=== PATIENT | female | born 1990 | race Caucasian/White ===

== ENCOUNTER 2018-04-16 17:20 | Outpatient (CLI) | payer BC ==
[~2018-04-16 17:20] MED LIST: FLAGYL500 MG PO; PERCOCET 5/31 TABLET PO; TESSALON PERLE100 MG PO; ZOFRAN ODT4 MG PO
[2018-04-16 17:41] VITALS: BP 131/87
[2018-04-16 17:59] VITALS: BP 136/78
[2018-04-16 18:04] LABS: BASOPHIL (%) 0.1 % (0-1); EOSINOPHIL (%) 0.4 % (0-5); EOSINOPHIL COUNT 0.1 K/uL (0-0.3); HEMATOCRIT 29.2 % (36.0-46.0); HEMOGLOBIN 9.4 G/DL (11.9-15.5); IMMATURE GRANULOCYTE (%) 0.5 % (0.0-0.7); LYMPHOCYTE (%) 17.6 % (15-42); MCH 26.1 PG (29.0-34.0); MCHC 32.2 G/DL (30.0-36.0); MCV 81.1 FL (83-99); MONOCYTE (%) 8.3 % (3-12); NEUTROPHIL (%) 73.1 % (45-76); NEUTROPHIL COUNT 8.4 K/uL (1.8-6.4); PLATELET COUNT 289 K/uL (156-360); RBC DIS.WIDTH-CV 14.6 % (11.8-14.6); RBC DIS.WIDTH-SD 42.8 % (39-53); WHITE BLOOD COUNT 11.5 K/uL (4.1-10.2)
[2018-04-16 18:16] LABS: ALBUMIN 3.2 g/dL (3.2-4.8); CHLORIDE 105 mEq/L (99-109); POTASSIUM 3.6 mEq/L (3.7-5.4); SODIUM 139 mEq/L (136-147)
[2018-04-16 18:18] LABS: GLUCOSE 68 mg/dL (70-99); TOTAL PROTEIN 5.9 g/dL (6.4-8.3)
[2018-04-16 18:20] LABS: TOTAL BILIRUBIN 0.6 mg/dL (0.0-1.0)
[2018-04-16 18:22] LABS: ALKALINE PHOSPHATASE 139 IU/L (3-129); CREATININE 0.6 mg/dL (0.6-1.3); GFR ESTIMATE (CALCULATED) > 59 mL/min/
[2018-04-16 18:23] LABS: UREA NITROGEN (BUN) 6 mg/dL (9-23)
[2018-04-16 18:24] LABS: AST (GOT) 23 IU/L (2-34)
[2018-04-16 18:25] LABS: ALT (GPT) 20 IU/L (3-49)
[2018-04-16] MEDS ORDERED: PRENATAL TABLE1 EACH PO (18:42)
[2018-04-16] MEDS ORDERED: FEOSOL325 MG PO (18:42)
[2018-04-16 20:02] LABS: UR CREATININE CONCENTRATION 22.7 MG/DL
== END 2018-04-16 19:20 | disposition home or self-care (01) ==
LOC: LDRP-OP 17:20 → 2WEST 17:21
PROVIDERS: Obstetrics & Gynecology
DX: O16.3 Unspecified maternal hypertension, third trimester (principal); Z3A.36 36 weeks gestation of pregnancy; O99.013 Anemia complicating pregnancy, third trimester; D64.9 Anemia, unspecified
CPT/HCPCS: 59025; 80053; 82570; 84156; 85025; G0378